=== PATIENT | female | born 1960 | race Caucasian/White ===

== ENCOUNTER 2019-07-03 13:07 | Emergency (ER) | payer BC, OTHER ==
[~2019-07-03] VITALS: Ht 170 cm; Wt 110.0 kg
--- NOTE | 2019-07-03 13:24 | ED GI ---
General Chief Complaint: Abdominal/GI Problems Stated Complaint: STRANGULATED HERNIA? Source of Information: Patient Exam Limitations: No Limitations History of Present Illness Date Seen by Provider: Jul 03, 2019 Time Seen by Provider: 13:21 Initial Comments 59-year-old female presents with abdominal pain that has resolved. Patient has a known periumbilical hernia. Patient was seen at urgent care earlier and sent over here for a possible CT. Patient reports that she is having pain in that site earlier this morning. That they were concerned about a possible incarcerated/strangulated hernia. At this time patient abdomen is soft with normal bulging with no tenderness. Patient denies any fever, chills, nausea, vomiting, constipation diarrhea or other systemic complaints at this time Allergies and Home Medications Patient Home Medication List Home Medication List Reviewed: Yes Review of Systems Review of Systems Constitutional: no symptoms reported; No chills, No fever, No malaise EENTM: No Symptoms Reported Respiratory: No Symptoms Reported Cardiovascular: No Symptoms Reported Gastrointestinal: See HPI Genitourinary: No Symptoms Reported Past Wtcfujn-Sxogdt-Jbrqbo Hx Past Med/Social Hx: Reviewed Nursing Past Med/Soc Hx Patient Social History Recent Foreign Travel: No Contact w/Someone Who Travel: No Physical Exam Vital Signs Vital Signs - First Documented 07/03/19 13:23 Temp 37.1 Pulse 85 Resp 18 B/P (MAP) 161/91 (114) Pulse Ox 96 Capillary Refill : Height/Weight/BMI Height: '" Weight: lbs. oz. kg; BMI Method: General Appearance: WD/WN, no apparent distress HEENT: PERRL/EOMI Neck: full range of motion, supple Respiratory: chest non-tender, lungs clear Cardiovascular: normal peripheral pulses, regular rate, rhythm Peripheral Pulses: 2+ Radial Pulses (R), 2+ Radial Pulses (L) Gastrointestinal: non tender, soft, hernia (large periumbilical hernia but no signs of strangulation, incarceration. Soft and nontender at site.) Extremities: non-tender Back: no CVA tenderness Neurologic/Psychiatric: alert, oriented x 3 Skin: normal color, warm/dry Progress/Results/Core Measures Results/Orders Vital Signs/I&O 07/03/19 13:23 Temp 37.1 Pulse 85 Resp 18 B/P (MAP) 161/91 (114) Pulse Ox 96 Progress Progress Note : Time: 13:42 Progress Note Patient with no physical exam signs of an incarcerated or strangulated periumbilical hernia. Patient was offered CT and labs if she for like. However I did discuss with her that was unlikely that cannot show anything at this time since her abdomen is very soft with the nose with defect that is consistent with her chronic known periumbilical defect. Time patient chose to for go the CT her labs. If the pain returns she should will return to the ER. I did recommend she follow up with a general surgeon to discuss possible repair if it is starting to give her occasional problems. Patient will be discharged home in stable condition Departure Impression Primary Impression: Periumbilical hernia Disposition: 01 HOME, SELF-CARE Condition: Improved Departure-Patient Inst. Referrals: KAYLEE ROSAS DO Call for an appointment for evaluation of umbilical hernia NEO NIELSEN MD (PCP/Family) Primary Care Physician Patient Instructions: Umbilical Hernia, Adult Add. Discharge Instructions: I recommend that you follow up with general surgeon for further evaluation and possible surgery if recommended Emergency department focuses on treating and ruling out life-threatening diseases. Whenever possible, a diagnosis is given. However, most patients are given an impression based on their history, physical exam, and workup during your brief time in the ER. Information about probable diagnosis and other educational material has been provided. Please take the time to read and understand this information. It is very important that you follow up with a physician as discussed during the visit today. Failure to adhere to your follow-up instructions may lead to severe disability, injury, or so please make sure to keep your appointments or obtain one as requested. Please keep in mind the emergency department is not designed to your primary care or "family doctor" and nonurgent issues are best evaluated by an outpatient physician All discharge instructions reviewed with patient and/or family. Voiced understanding. JACOB HOLT DO Jul 03, 2019 13:24
[2019-07-03 13:50] VITALS: BP 161/91
--- OUTSIDE RECORDS SUMMARY | 2019-07-12 02:47 | XMS REPORT ---
Author Author Alysha CHAN Organization [employer] Address Unknown Phone Unavailable Care Team Providers Care Fancy Wire Drawer Name Role Phone ZAKIA CHAN CP Unavailable Allergies No Known Allergies Problems Problem Type Condition Code Onset Dates Condition Statu s Assessment Encounter for immunization Z23 A ctive Medications No Known Medications Procedures Procedure Coding System Code Date SINGLE IMMUNIZATION ADMIN CPT-4 47047 Mar FLUARIX QUAD (3 & UP)-GSK-2014 CPT-4 04225 N 2014 Results No Known Results Immunizations Vaccine Administration Date FLUARIX QUAD (3 & UP)-GSK-2014Mar 27, 2015 Summary Purpose [employer] Submission
--- OUTSIDE RECORDS SUMMARY | 2019-07-12 02:47 | XMS REPORT | Continuity of Care Document ---
Author Organization Unknown Address Unknown Phone Unavailable Allergies There is no data. Medications There is no data. Problems There is no data. Procedures There is no data. Results There is no data. Encounters ACCT No. Visit Date/Time Discharge Status Pt. Type Provider Facility Loc./Unit Complaint [id number] 07/03/2019 09:40:00 07/03/2019 23:59: 59 CLS Outpatient [facility] [place] [facility] [id number] 07/03/2019 13:10:00 020 13:45:00 DIS Emergency JACOB HOLT DO [facility] ER FS HERNIA
--- OUTSIDE RECORDS SUMMARY | 2019-07-12 02:47 | XMS REPORT ---
Author Author Alysha GÓMEZ Organization [facility] Address [address] [place] [address] Care Team Providers Care Water And Gas Helper Name Role Phone AISLINN GÓMEZ Unavailable PROBLEMS Unknown Problems ALLERGIES No Information ENCOUNTERS Encounter Location Date Diagnosis [place] [id number] [facility] [id number] [address] [place] [id number] Feb, Encounter for immunization Z 23 [place] [id number] [facility] [id number] [address] [place] [phone] Feb, Encounter for immunization Z 23 [place] [address] [address] [facility] [id number] [address] [place] [phone] Mar, Encounter for immunization Z 23 IMMUNIZATIONS Vaccine Route Administration Date Status FLULAVAL QUAD 0.5ML (6 MO & UP) 2017 IM Intramuscular Mar 16 18 Administered SOCIAL HISTORY Never Assessed REASON FOR VISIT Flu shot PLAN OF CARE VITAL SIGNS MEDICATIONS Unknown Medications RESULTS No Results PROCEDURES Procedure Date Ordered Result Body Site FLULAVAL QUAD 0.5ML (6 MO AND UP) 2017Mar 16, 2018 SINGLE IMMUNIZATION ADMIN Mar 16, 2018 INSTRUCTIONS MEDICATIONS ADMINISTERED No Known Medications
--- OUTSIDE RECORDS SUMMARY | 2019-07-12 02:47 | XMS REPORT ---
Author Author Alysha GÓMEZ Organization [facility] Address [address] [place] [address] Care Team Providers Care Jewelry Mold Maker Name Role Phone AISLINN GÓMEZ Unavailable PROBLEMS Unknown Problems ALLERGIES No Information ENCOUNTERS Encounter Location Date Diagnosis [facility] [address] [facility] [id number] [address] [place] [phone] Feb, Encounter for immunization Z 23 [facility] [address] [facility] [id number] [address] [place] [id number] Mar, Encounter for immunization Z 23 IMMUNIZATIONS Vaccine Route Administration Date Status FLUARIX QUAD (3 AND UP) 2017 IM Intramuscular Mar 04, 2017 Ad ministered SOCIAL HISTORY Never Assessed REASON FOR VISIT Flu shot PLAN OF CARE VITAL SIGNS MEDICATIONS Unknown Medications RESULTS No Results PROCEDURES Procedure Date Ordered Result Body Site FLUARIX QUAD (3 & UP)-GSK-2014Mar 04, 2017 SINGLE IMMUNIZATION ADMIN Mar 04, 2017 INSTRUCTIONS MEDICATIONS ADMINISTERED No Known Medications
== END 2019-07-03 13:45 | disposition home or self-care (01) ==
LOC: ER FS 13:10
DX: K42.9 Umbilical hernia without obstruction or gangrene (principal)
CPT/HCPCS: 99282